=== PATIENT | male | born 1980 | race Caucasian/White ===

== ENCOUNTER 2016-12-10 04:44 | Emergency (ER) | payer SELFPAY ==
[~2016-12-10] VITALS: Ht 182.9 cm; Wt 81.8 kg
[2016-12-10 04:55] VITALS: Ht 182.9 cm; Wt 81.8 kg
[2016-12-10 06:07] VITALS: BP 131/78; PULSE 68; RESP 18; TEMP 98.2
--- NOTE | 2016-12-10 08:52 | ERD ---
ER Documentation Chief Complaint Chief Complaint sp ground level fall, right foot pain, old open wound right hand HPI Patient is a 36-year-old male with heroin abuse who presents saying "I am coming off opiates". He said that his last use of heroin was 2 days ago. He has decreased p.o. intake. He says "I am dehydrated and needed IV". He says that he wants detox. He was actually just seen at [facility] and was discharged with ibuprofen and came directly to [facility] for another evaluation. Upon review of old medical records this is the patient's first visit to the emergency department. ROS All systems reviewed and are negative except as per history of present illness. Allergies Allergies: Coded Allergies: No Known Allergy (Unverified , 12/10/16) PMhx/Soc History of Surgery: No Anesthesia Reaction: No Hx Neurological Disorder: Yes (SZ) Hx Respiratory Disorders: No Hx Cardiac Disorders: No Hx Psychiatric Problems: No Hx Miscellaneous Medical Probl: No Hx Alcohol Use: No Hx Substance Use: Yes (HEROIN ) Hx Tobacco Use: No Smoking Status: Never smoker FmHx Family History: No diabetes Physical Exam Vitals Vital Signs Date Time Temp Pulse Resp B/P Pulse Ox O2 Delivery O2 Flow Rate FiO2 12/10/16 06:07 98.2 68 18 131/78 98 Room Air 12/10/16 04:55 98.3 88 20 126/84 100 Physical Exam Const: No acute distress Head: Atraumatic Eyes: Normal Conjunctiva ENT: Normal External Ears, Nose and Mouth. Neck: Full range of motion..~ No meningismus. Resp: Clear to auscultation bilaterally Cardio: Regular rate and rhythm, no murmurs Abd: Soft, non tender, non distended. Normal bowel sounds Skin: No petechiae or rashes Back: No midline or flank tenderness Ext: No cyanosis, or edema Neur: Awake and alert Procedures/MDM Smoking Cessation Therapy: Pt. was lectured for greater than 3 minutes on the health risks of continued smoking and the benefits of cessation. Patient is a 36-year-old male with heroin abuse who presents with heroin withdrawal. I told him that we did not do inpatient detox here at the hospital and that he will need to follow-up with the local treatment centers. I did provide him with a list of the local detox centers in the area. The patient will be discharged. He can return for any worsening symptoms. I do not believe he requires an IV or further workup at this time. His vital signs are normal. Departure Diagnosis: Primary Impression: Opioid withdrawal Condition: Fair Patient Instructions: Treating Heroin Addiction Referrals: [facility] YOU HAVE RECEIVED A MEDICAL SCREENING EXAM AND THE RESULTS INDICATE THAT YOU DO NOT HAVE A CONDITION THAT REQUIRES URGENT TREATMENT IN THE EMERGENCY DEPARTMENT. FURTHER EVALUATION AND TREATMENT OF YOUR CONDITION CAN WAIT UNTIL YOU ARE SEEN IN YOUR DOCTORS OFFICE WITHIN THE NEXT 1-2 DAYS. IT IS YOUR RESPONSIBILITY TO MAKE AN APPOINTMENT FOR [facility]- CARE. IF YOU HAVE A PRIMARY DOCTOR --you should call your primary doctor and schedule an appointment IF YOU DO NOT HAVE A PRIMARY DOCTOR YOU CAN CALL OUR PHYSICIAN REFERRAL HOTLINE AT IF YOU CAN NOT AFFORD TO SEE A PHYSICIAN YOU CAN CHOSE FROM THE FOLLOWING [facility] CLINICS [facility] [address] [facility]. [facility] [address] [facility]. [facility] [address] [facility]. [facility] [address] [facility]. [facility] [address] [facility]. [facility]. [address] Additional Instructions: Call your primary care doctor TOMORROW for an appointment during the next 1-2 days.See the doctor sooner or return here if your condition worsens before your appointment time. NUSRAT FLOYD MD Dec 10, 2016 08:52
--- NOTE | 2016-12-10 08:52 | ERD ---
ER Documentation Chief Complaint Chief Complaint sp ground level fall, right foot pain, old open wound right hand HPI Patient is a 36-year-old male with heroin abuse who presents saying "I am coming off opiates". He said that his last use of heroin was 2 days ago. He has decreased p.o. intake. He says "I am dehydrated and needed IV". He says that he wants detox. He was actually just seen at [facility] and was discharged with ibuprofen and came directly to [facility] for another evaluation. Upon review of old medical records this is the patient's first visit to the emergency department. ROS All systems reviewed and are negative except as per history of present illness. Allergies Allergies: Coded Allergies: No Known Allergy (Unverified , 12/10/16) PMhx/Soc History of Surgery: No Anesthesia Reaction: No Hx Neurological Disorder: Yes (SZ) Hx Respiratory Disorders: No Hx Cardiac Disorders: No Hx Psychiatric Problems: No Hx Miscellaneous Medical Probl: No Hx Alcohol Use: No Hx Substance Use: Yes (HEROIN ) Hx Tobacco Use: No Smoking Status: Never smoker FmHx Family History: No diabetes Physical Exam Vitals Vital Signs Date Time Temp Pulse Resp B/P Pulse Ox O2 Delivery O2 Flow Rate FiO2 12/10/16 06:07 98.2 68 18 131/78 98 Room Air 12/10/16 04:55 98.3 88 20 126/84 100 Physical Exam Const: No acute distress Head: Atraumatic Eyes: Normal Conjunctiva ENT: Normal External Ears, Nose and Mouth. Neck: Full range of motion..~ No meningismus. Resp: Clear to auscultation bilaterally Cardio: Regular rate and rhythm, no murmurs Abd: Soft, non tender, non distended. Normal bowel sounds Skin: No petechiae or rashes Back: No midline or flank tenderness Ext: No cyanosis, or edema Neur: Awake and alert Procedures/MDM Smoking Cessation Therapy: Pt. was lectured for greater than 3 minutes on the health risks of continued smoking and the benefits of cessation. Patient is a 36-year-old male with heroin abuse who presents with heroin withdrawal. I told him that we did not do inpatient detox here at the hospital and that he will need to follow-up with the local treatment centers. I did provide him with a list of the local detox centers in the area. The patient will be discharged. He can return for any worsening symptoms. I do not believe he requires an IV or further workup at this time. His vital signs are normal. Departure Diagnosis: Primary Impression: Opioid withdrawal Condition: Fair Patient Instructions: Treating Heroin Addiction Referrals: [facility] YOU HAVE RECEIVED A MEDICAL SCREENING EXAM AND THE RESULTS INDICATE THAT YOU DO NOT HAVE A CONDITION THAT REQUIRES URGENT TREATMENT IN THE EMERGENCY DEPARTMENT. FURTHER EVALUATION AND TREATMENT OF YOUR CONDITION CAN WAIT UNTIL YOU ARE SEEN IN YOUR DOCTORS OFFICE WITHIN THE NEXT 1-2 DAYS. IT IS YOUR RESPONSIBILITY TO MAKE AN APPOINTMENT FOR [facility]- CARE. IF YOU HAVE A PRIMARY DOCTOR --you should call your primary doctor and schedule an appointment IF YOU DO NOT HAVE A PRIMARY DOCTOR YOU CAN CALL OUR PHYSICIAN REFERRAL HOTLINE AT IF YOU CAN NOT AFFORD TO SEE A PHYSICIAN YOU CAN CHOSE FROM THE FOLLOWING [facility] CLINICS [facility] [address] [facility]. [facility] [address] [facility]. [facility] [address] [facility]. [facility] [address] [facility]. [facility] [address] [facility]. [facility]. [address] Additional Instructions: Call your primary care doctor TOMORROW for an appointment during the next 1-2 days.See the doctor sooner or return here if your condition worsens before your appointment time. NUSRAT FLOYD MD Dec 10, 2016 08:52
--- NOTE | 2016-12-10 08:52 | ERD ---
ER Documentation Chief Complaint Chief Complaint sp ground level fall, right foot pain, old open wound right hand HPI Patient is a 36-year-old male with heroin abuse who presents saying "I am coming off opiates". He said that his last use of heroin was 2 days ago. He has decreased p.o. intake. He says "I am dehydrated and needed IV". He says that he wants detox. He was actually just seen at [facility] and was discharged with ibuprofen and came directly to [facility] for another evaluation. Upon review of old medical records this is the patient's first visit to the emergency department. ROS All systems reviewed and are negative except as per history of present illness. Allergies Allergies: Coded Allergies: No Known Allergy (Unverified , 12/10/16) PMhx/Soc History of Surgery: No Anesthesia Reaction: No Hx Neurological Disorder: Yes (SZ) Hx Respiratory Disorders: No Hx Cardiac Disorders: No Hx Psychiatric Problems: No Hx Miscellaneous Medical Probl: No Hx Alcohol Use: No Hx Substance Use: Yes (HEROIN ) Hx Tobacco Use: No Smoking Status: Never smoker FmHx Family History: No diabetes Physical Exam Vitals Vital Signs Date Time Temp Pulse Resp B/P Pulse Ox O2 Delivery O2 Flow Rate FiO2 12/10/16 06:07 98.2 68 18 131/78 98 Room Air 12/10/16 04:55 98.3 88 20 126/84 100 Physical Exam Const: No acute distress Head: Atraumatic Eyes: Normal Conjunctiva ENT: Normal External Ears, Nose and Mouth. Neck: Full range of motion..~ No meningismus. Resp: Clear to auscultation bilaterally Cardio: Regular rate and rhythm, no murmurs Abd: Soft, non tender, non distended. Normal bowel sounds Skin: No petechiae or rashes Back: No midline or flank tenderness Ext: No cyanosis, or edema Neur: Awake and alert Procedures/MDM Smoking Cessation Therapy: Pt. was lectured for greater than 3 minutes on the health risks of continued smoking and the benefits of cessation. Patient is a 36-year-old male with heroin abuse who presents with heroin withdrawal. I told him that we did not do inpatient detox here at the hospital and that he will need to follow-up with the local treatment centers. I did provide him with a list of the local detox centers in the area. The patient will be discharged. He can return for any worsening symptoms. I do not believe he requires an IV or further workup at this time. His vital signs are normal. Departure Diagnosis: Primary Impression: Opioid withdrawal Condition: Fair Patient Instructions: Treating Heroin Addiction Referrals: [facility] YOU HAVE RECEIVED A MEDICAL SCREENING EXAM AND THE RESULTS INDICATE THAT YOU DO NOT HAVE A CONDITION THAT REQUIRES URGENT TREATMENT IN THE EMERGENCY DEPARTMENT. FURTHER EVALUATION AND TREATMENT OF YOUR CONDITION CAN WAIT UNTIL YOU ARE SEEN IN YOUR DOCTORS OFFICE WITHIN THE NEXT 1-2 DAYS. IT IS YOUR RESPONSIBILITY TO MAKE AN APPOINTMENT FOR [facility]- CARE. IF YOU HAVE A PRIMARY DOCTOR --you should call your primary doctor and schedule an appointment IF YOU DO NOT HAVE A PRIMARY DOCTOR YOU CAN CALL OUR PHYSICIAN REFERRAL HOTLINE AT IF YOU CAN NOT AFFORD TO SEE A PHYSICIAN YOU CAN CHOSE FROM THE FOLLOWING [facility] [address] [facility]. [facility] [address] [facility]. [facility] [address] [facility] [facility] [address] [facility]. [facility] [address] [facility]. [facility]. [address] Additional Instructions: Call your primary care doctor TOMORROW for an appointment during the next 1-2 days.See the doctor sooner or return here if your condition worsens before your appointment time. NUSRAT FLOYD MD Dec 10, 2016 08:52
== END 2016-12-10 06:22 | disposition home or self-care (01) ==
LOC: FTE 04:44 → E/R 06:22
DX: F11.23 Opioid dependence with withdrawal (principal)
CPT/HCPCS: 99282